=== PATIENT | male | born 1990 | race Caucasian/White ===

== ENCOUNTER 2023-11-21 19:34 | Emergency (ER) | payer SELFPAY, OTHER ==
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
[2023-11-22 03:03] VITALS: BP 137/94; TEMP 97.3; O2SAT 99
== END 2023-11-21 23:56 | disposition home or self-care (01) ==
LOC: ER 19:34
DX: J01.00 Acute maxillary sinusitis, unspecified (principal); V49.40XA Driver injured in collision with unspecified motor vehicles in traffic accident, initial encounter
CPT/HCPCS: 70450; 99284